=== PATIENT | male | born 1950 | race Two or more races ===

== ENCOUNTER 2017-07-10 11:20 | Inpatient (IN) | payer MEDICARE ==
[~2017-07-10] VITALS: Ht 177.8 cm; Wt 57.2 kg
--- NOTE | 2017-07-10 11:30 | NUR ---
BIB [facility] FOR NOT EATING X 3 DAYS. VSS. NAD NOTED. SEEN BY MD FOR EVAL. SAFETY AND COMFORT [id number] PROVIDED. WILL MONITOR.
--- NOTE | 2017-07-10 11:40 | NUR ---
IV ACCESS STARTED. BLOOD DRAWN FOR LABS. MEDICATED ORDERED.
--- NOTE | 2017-07-10 11:49 | NUR ---
PT TAKEN TO CT.
[2017-07-10 11:57] LABS: BASOPHILS % (AUTO) 0.1 % (0.0-2.0); EOSINOPHILS # (AUTO) 0.1 /CMM (0.0-0.7); EOSINOPHILS % (AUTO) 0.9 % (0.0-6.0); HEMATOCRIT 36 % (39-51); MEAN CORPUSCULAR HEMOGLOBIN 34 PG (26.0-33.0); MEAN CORPUSCULAR HGB CONC 33 g/dl (31.0-36.0); MEAN CORPUSCULAR VOLUME 104 fL (80-96); MONOCYTES # (AUTO) 0.3 /CMM (0.1-1.30); MONOCYTES % (AUTO) 5.6 % (2.0-12.0); NEUTROPHILS # (AUTO) 4.2 /CMM (1.8-8.9); NEUTROPHILS % (AUTO) 75.4 % (43.0-81.0); PLATELET COUNT (AUTO) 90 /CMM (150-450); RDW COEFFICIENT OF VARIATION 22.3 (11.5-15.0); WHITE BLOOD COUNT (AUTO) 5.6 K/uL (4.3-11.0)
[2017-07-10] MEDS ORDERED: IV NS 0.9% 1,000 ML BAG IV ONE (12:00)
[2017-07-10 12:03] LABS: CALCIUM, SERUM 8.1 mg/dL (8.5-10.1); CARBON DIOXIDE 26 mmol/L (21-32); CHLORIDE 112 mmol/L (98-107); CREATININE 0.7 mg/dL (0.6-1.3); GLUCOSE 319 mg/dL (74-106); POTASSIUM 3.2 mmol/L (3.5-5.1); SODIUM SERUM 144 mmol/L (136-145); UREA NITROGEN, BLOOD 14 mg/dL (7-18)
[2017-07-10 12:11] LABS: TROPONIN I < 0.017 ng/mL (0.00-0.056)
--- NOTE | 2017-07-10 12:11 | NUR ---
URINE SAMPLE OBTAINED, SENT.
[2017-07-10 12:13] LABS: INR 1.45 (0.87-1.13); PROTHROMBIN TIME 15.1 SECS (9.5-12.7)
[2017-07-10 12:16] LABS: BAND % (MANUAL) 4 % (0.0-5.0); EOSINOPHILS % (MANUAL) 1 % (0-4); LYMPHOCYTES % (MANUAL) 17 % (16-48); MONOCYTES % (MANUAL) 3 % (0-11.0); NEUTROPHILS % (MANUAL) 75 (42-76)
[2017-07-10 12:18] LABS: ALANINE AMINOTRANSFERASE 32 U/L (12-78); ALKALINE PHOSPHATASE 182 U/L (46-116); ASPARTATE AMINOTRANSFERASE 42 U/L (15-37); BILIRUBIN,DIRECT 0.3 mg/dL (0.0-0.2); BILIRUBIN,TOTAL 0.8 mg/dL (0.2-1.0); TOTAL PROTEIN, SERUM 6.8 g/dL (6.4-8.2)
[2017-07-10 12:36] LABS: APPEARANCE,URINE SL CLOUDY (CLEAR); BILIRUBIN,URINE NEGATIVE (NEGATIVE); BLOOD, URINE 2+ Ery/uL (NEGATIVE); COLOR,URINE YELLOW (YELLOW); KETONES,URINE NEGATIVE (NEGATIVE); LEUKOCYTE ESTERASE ,URINE TRACE (NEGATIVE); NITRITE, URINE POSITIVE (NEGATIVE); PROTEIN,URINE TRACE mg/dl (NEGATIVE); UGLUCOSE 3+ mg/dL (NEGATIVE)
--- NOTE | 2017-07-10 12:40 | NUR ---
CALLED DR MARY OFFICE WAS PAGED.
[2017-07-10 12:44] LABS: BACTERIA,URINE Moderate /HPF (None Seen); RBC,URINE 0-3 /HPF (0-2); SQUAMOUS EPITHELIAL CELL,UR Few /HPF (None Seen); WBC,URINE 21-50 /HPF (0-3)
[2017-07-10] MEDS ORDERED: IV NS 0.9% 500 ML BAG IV ONE (13:00)
[2017-07-10] MEDS ORDERED: CEFTRIAXONE 1GM BAG (ER ONLY) 1 GM/50 ML PIGGYBACK IV ONE (13:00)
[2017-07-10] MEDS ORDERED: CEFTRIAXONE 1GM BAG (ER ONLY) 50 ML IV ONE (13:05)
[2017-07-10] MEDS ORDERED: CAPE500T15 PO (13:10)
[2017-07-10] MEDS ORDERED: MIRT30TA7 PO (13:10)
[2017-07-10] MEDS ORDERED: PRAV20TA4 PO (13:10)
[2017-07-10] MEDS ORDERED: CHOL100062 PO (13:10)
[2017-07-10] MEDS ORDERED: ONDA8TAB6 PO (13:10)
[2017-07-10] MEDS ORDERED: INSU3INS6 SQ (13:10)
--- NOTE | 2017-07-10 13:10 | NUR ---
CALLED DR MARY OFFICE WAS REPAGED.
--- NOTE | 2017-07-10 14:23 | NUR ---
REPORT GIVEN TO RON SOLORZANO FOR MS [id number]
--- NOTE | 2017-07-10 14:30 | NUR ---
NS EMPLOYMENT PROGRAMS ANALYST NOTE PATIENT IS ALERT AND ORIENTED x2. PERIODS OF CONFUSION NOTED. ABLE TO COMMUNICATE NEEDS. CALL LIGHT WITHIN REACH. SAFETY MEASURES IMPLEMENTED. BLOOD SUGARS TO BE MONITORED. IV ON LEFT FOREARM 20 G INTACT AND PATENT NO REDNESS OR SWELLING NOTED. RECEIVED REPORT FROM VINNIE SOLORZANO. ADMITTED TO ER FROM [facility] DUE TO NOT EATING FOR THREE DAYS STRAIGHT. HISTORY OF COLON CA, CAD AND DM. INCONTINENT. PT EVALUATION FOR WEAKNESS. MRSA SWAB OBTAINED. MULTIPLE SKIN ISSUES NOTED AND DOCUMENTED. WILL CONTINUE TO MONITOR
[2017-07-10 16:00] VITALS: BP 148/70
[2017-07-10] MEDS ORDERED: ONDANSETRON 4 MG TAB.RAPDIS PO PRN (16:30)
[2017-07-10] MEDS ORDERED: DEXTROSE 50%-WATER 50 ML DISP.SYRIN IV PRN (16:30)
[2017-07-10] MEDS ORDERED: CAPECITABINE 500 MG TABLET PO SCH (17:00)
[2017-07-10] MEDS: BLOOD SUGAR DIAGNOSTIC 1 EACH STRIP IN SCH ×2 (17:17→22:20)
[2017-07-10] MEDS: CHOLECALCIFEROL 1,000 UNIT TABLET (VIT D3) PO SCH (17:17)
[2017-07-10] MEDS: IV NS 0.9% 1,000 ML IV PRN (17:29)
[2017-07-10] MEDS: INSULIN ASPART HUMALOG/NOVOLOG 100 UNIT/ML CARTRIDGE SQ PRN ×2 (18:23→22:31)
--- NOTE | 2017-07-10 18:37 | NUR ---
MS RN CLOSING NOTE PATIENT IS ALERT AND ORIENTED x2. NO PAIN AT THIS TIME. NO SOB OR DISTRESS NOTED. CALL LIGHT WITHIN REACH AT ALL TIMES. SAFETY MEASURES IMPLEMENTED. ABLE TO COMMUNICATE NEEDS. IV ON LEFT FOREARM INTACT AND PATENT NO REDNESS OR SWELLING NOTED. HAS IV FLUIDS ATR 75 ML/HR. MADE MD AWARE ABOUT POTASSIUM, NNO. BLOOD SUGAR 181-3 UNITS GIVEN. AWAITING PT EVAL. CALLED [facility] IN [place] FOR MEDICATION TO BE BROUGHT FOR PATIENT, NO RN AVAILABLE UNTIL THE MORNING. WILL ENDORSE TO MILLWRIGHT APPRENTICE NURSE TO CALL WHEN AVAILABLE. PATIENT MOVED FROM [id number] TO [id number].WILL ENDORSE TO MILLWRIGHT APPRENTICE NURSE FOR SYLVIE.
--- NOTE | 2017-07-10 19:20 | NUR ---
MS/RN OPENING NOTES PT RECEIVED RESTING COMFORTABLY IN BED. A/OX2, ON RA, BREATHING EVEN AND UNLABORED. NO S/S OF SOB, DENIES PAIN. IV TO LEFT FA PATENT AND INTACT RUNNING IVF ORDERED. BED IN LOW/LOCKED POSITION WITH CALL LIGHT IN REACH. SIDE RAILS UPX2 AND BED ALARM ON FOR SAFETY. WILL CONTINUE TO MONITOR
[2017-07-10 20:00] VITALS: BP 124/56
[2017-07-10] MEDS: INSULIN DETEMIR 100 UNIT/ML CARTRIDGE SQ SCH (21:13)
--- NOTE | 2017-07-10 21:24 | NUR ---
MS/RN NOTES BLOOD KFGDH=[id number], ADMINISTERED 5 UNITS OF LEVEMIR SCHEDULED. SNACK PROVIDED.
[2017-07-10] MEDS: PRAVASTATIN SODIUM 20 MG TABLET PO SCH (22:18)
[2017-07-10] MEDS: MIRTAZAPINE 15 MG TABLET PO SCH (22:18)
--- NOTE | 2017-07-11 06:30 | NUR ---
MS/RN NOTES PER APPAREL MANUFACTURE INSTRUCTOR, PT NOTED TO HAVE [place] COLORED STOOL WITH LITTLE BLOOD. PERSONALLY DID NOT SEE SAMPLE. DR. JAY'S OFFICE WAS PAGED TO NOTIFY HIM. AWAITING CALL BACK
[2017-07-11] MEDS: BLOOD SUGAR DIAGNOSTIC 1 EACH STRIP IN SCH ×4 (06:55→22:06)
[2017-07-11] MEDS: INSULIN ASPART HUMALOG/NOVOLOG 100 UNIT/ML CARTRIDGE SQ PRN ×2 (06:55→12:41)
--- NOTE | 2017-07-11 07:10 | NUR ---
MS/RN CLOSING NOTES PT ASLEEP, EASILY AROUSABLE TO NAME/TOUCH. A/OX2. ABLE TO VERBALIZE NEEDS. ON RA, BREATHING EVEN AND UNLABORED. DENIES PAIN AND SOB. IV TO LFA PATENT AND INTACT RUNNING IVF ORDERED. SNACKS PROVIDED. MADE PT COMFORTABLE DURING SHIFT. ALL NEEDS MET AND ATTENDED. TURNED/REPOSITIONED Q2H AND OFFLOADED HEELS. BED IN LOW/LOCKED POSITION, CALL LIGHT IN REACH, SIDE RAILS XUP3 AND BED ALARM ON FOR SAFETY. SANCHEZ COLORED STOOLS NOTED DURING SHIFT. WILL ENDORSE TO DAY SHIFT RN TO MONITOR AND FOLLOW UP WITH MD. MIRIAN MCINTOSH TO BE CONTACTED TO PROVIDE MEDICATION "XELODA". BLOOD SUGAR THIS AM=66, 2 BOXES OF OJ CONSUMED
--- NOTE | 2017-07-11 07:30 | NUR ---
RN NOTES RECEIVED PATIENT ASLEEP IN BED, AROUSES EASILY, ALERT AND ORIENTED X 2. NO ACUTE DISTRESS, NO SOB NOTED. DENIES PAIN AND DISCOMFORT AT THE MOMENT. IV SITE INTACT AND PATENT. SAFETY MEASURES INITIATED. BED IN LOCKED, LOW POSITION, SIDERAILS UP X2, CALL LIGHT IN REACH. WILL CONTINUE TO MONITOR ACCORDINGLY.
[2017-07-11 08:00] VITALS: BP 110/54
[2017-07-11] MEDS: INSULIN DETEMIR 100 UNIT/ML CARTRIDGE SQ SCH (10:28)
[2017-07-11] MEDS: CHOLECALCIFEROL 1,000 UNIT TABLET (VIT D3) PO SCH (10:34)
[2017-07-11] MEDS: ASPIRIN EC 81 MG TABLET.DR PO SCH (10:34)
[2017-07-11] MEDS: CEFTRIAXONE 1 G in IV D5W 50 ML IV SCH (12:45)
[2017-07-11] MEDS: IV NS 0.9% 1,000 ML IV PRN (12:49)
[2017-07-11 16:00] VITALS: BP 135/64
--- NOTE | 2017-07-11 19:15 | NUR ---
RN NOTES NO CHANGE OF PATIENT'S CONDITION. NO ACUTE DISTRESS, NO SOB. ALL NEEDS ATTENDED AND PROVIDED. KEPT PATIENT SAFE AND COMFORTABLE. BED IN LOCKED LOW POSITION, SIDERAILS UPX2, CALL LIGHT IN REACH. ENDORSED TO CONTENT ASSISTANT RN FOR SYLVIE.
--- NOTE | 2017-07-11 19:30 | NUR ---
MS RN NOTES RECEIVED ON BED A/O 1-2,EATING HIS DINNER FOOD,IVF NS AT 75ML/HR RATE IN PROGRESS VIA IV PUMP,SITE PATENT ON LFA.ABLE TO SIT AT BEDSIDE PER PT.FALL PRECAUTION OBSERVED.BED ON LOWEST POSITION AND LOCKED.BED ALARM TRIGGERED.CALL LIGHT IN REACH,NEEDS ANTICIPATED.
[2017-07-11 20:00] VITALS: BP 134/65
[2017-07-11 20:07] VITALS: BP 134/65
--- NOTE | 2017-07-11 22:00 | NUR ---
MS RN NOTES ACCU-CHECK BLOOD SUGAR CHECK 105,NO INSULIN COVERAGE
[2017-07-11] MEDS: MIRTAZAPINE 15 MG TABLET PO SCH (22:02)
[2017-07-11] MEDS: PRAVASTATIN SODIUM 20 MG TABLET PO SCH (22:04)
[2017-07-12] MEDS: IV NS 0.9% 1,000 ML IV PRN (02:54)
[2017-07-12] MEDS: BLOOD SUGAR DIAGNOSTIC 1 EACH STRIP IN SCH ×4 (05:37→21:54)
--- NOTE | 2017-07-12 06:29 | NUR ---
MS RN NOTES SLEPT WELL,A/O X1-2.IVF INFUSING,BLOOD SUGAR CHECK 87, NO INSULIN COVERAGE.IN NO ACUTE DISTRESS.WILL ENDORSE TO DAY NURSE FOR SYLVIE.
--- NOTE | 2017-07-12 06:49 | NUR ---
MS RN NOTES REFUSED MORNING LAB DRAW.
[2017-07-12 08:00] VITALS: BP 118/52
--- NOTE | 2017-07-12 08:19 | NUR ---
RN NOTES RECEIVED PT. PT IS STABLE AND SLEEPING IN BED. PER REPORT PT IS CONFUSED. ON RA, O2 SAT ABOVE 95%. NO S/S OF DISTRESS OR SOB AT THIS TIME. PT DOES NOT APPEAR TO BE IN PAIN. IV ACCESS LOCATED ON LEFT FA, 20G RUNNING NS AT 50 ML/HR. PT REFUSED BLOOD DRAW IN AM. SAFETY MEASURES IN PLACE, CALL LIGHT WITHIN REACH. WILL CONTINUE TO MONITOR.
[2017-07-12] MEDS: POTASSIUM CHLORIDE 20 MEQ TAB.PRT.SR PO SCH (08:42)
[2017-07-12] MEDS: CHOLECALCIFEROL 1,000 UNIT TABLET (VIT D3) PO SCH (08:42)
[2017-07-12] MEDS: ASPIRIN EC 81 MG TABLET.DR PO SCH (08:43)
[2017-07-12 09:37] LABS: BASOPHILS % (AUTO) 0.2 % (0.0-2.0); EOSINOPHILS # (AUTO) 0.1 /CMM (0.0-0.7); EOSINOPHILS % (AUTO) 1.3 % (0.0-6.0); HEMATOCRIT 36 % (39-51); HEMOGLOBIN 11.8 g/dL (13.5-17.5); LYMPHOCYTES # (AUTO) 0.8 /CMM (0.8-4.8); LYMPHOCYTES % (AUTO) 17.1 % (20.0-44.0); MEAN CORPUSCULAR HEMOGLOBIN 34 PG (26.0-33.0); MEAN CORPUSCULAR HGB CONC 33 g/dl (31.0-36.0); MEAN CORPUSCULAR VOLUME 103 fL (80-96); MONOCYTES # (AUTO) 0.2 /CMM (0.1-1.30); MONOCYTES % (AUTO) 4.8 % (2.0-12.0); NEUTROPHILS # (AUTO) 3.5 /CMM (1.8-8.9); NEUTROPHILS % (AUTO) 76.6 % (43.0-81.0); PLATELET COUNT (AUTO) 55 /CMM (150-450); RDW COEFFICIENT OF VARIATION 22.6 (11.5-15.0); RED BLOOD CELL COUNT(AUTO) 3.45 MIL/uL (4.5-6.0); WHITE BLOOD COUNT (AUTO) 4.6 K/uL (4.3-11.0)
[2017-07-12 09:44] LABS: CALCIUM, SERUM 7.4 mg/dL (8.5-10.1); CREATININE 0.4 mg/dL (0.6-1.3); POTASSIUM 3.2 mmol/L (3.5-5.1)
[2017-07-12 10:11] LABS: BAND % (MANUAL) 4 % (0.0-5.0); EOSINOPHILS % (MANUAL) 3 % (0-4); LYMPHOCYTES % (MANUAL) 21 % (16-48); MONOCYTES % (MANUAL) 5 % (0-11.0); NEUTROPHILS % (MANUAL) 67 (42-76)
[2017-07-12] MEDS: INSULIN ASPART HUMALOG/NOVOLOG 100 UNIT/ML CARTRIDGE SQ PRN (12:56)
[2017-07-12] MEDS: CEFTRIAXONE 1 G in IV D5W 50 ML IV SCH (13:00)
[2017-07-12 16:00] VITALS: BP 109/78
--- NOTE | 2017-07-12 19:25 | NUR ---
RN CLOSING NOTES PT IS IN BED RESTING. NO S/S OF DISTRESS OR SOB. NO C/O PAIN AT THIS TIME. NO NEW ORDERS OR PROCEDURES FOR TODAY. SAFETY MEASURES IN PLACE, CALL LIGHT WITHIN REACH. WILL ENDORSE TO CIRCULAR STUFFER FOR SYLVIE.
--- NOTE | 2017-07-12 19:30 | NUR ---
RN NOTES RECEIVED PATIENT IN BED AWAKE, AO X 1-2, ABLE TO MAKE NEEDS KNOWN. NO ACUTE DISTRESS NOTED. DENIES ANY PAIN AT THIS TIME. NOP SYMPTOMS OF HYPER/HYPOGLYCEMIA. IV SITE PATENT, INTACT; IVF INFUSING ORDERED. SAFETY REMINDERS GIVEN. ON LOW BED WITH BILATERAL UPPER SIDE RAILS UP. CALL LIGHT WITHIN EASY REACH. WILL CONTINUE TO MONITOR.
[2017-07-12 20:00] VITALS: BP 109/56
[2017-07-12] MEDS: PRAVASTATIN SODIUM 20 MG TABLET PO SCH (21:54)
[2017-07-12] MEDS: MIRTAZAPINE 15 MG TABLET PO SCH (21:54)
[2017-07-13] MEDS: IV NS 0.9% 1,000 ML IV PRN (05:22)
--- NOTE | 2017-07-13 06:48 | NUR ---
RN NOTES PATIENT ASLEEP, EASILY AROUSABLE. RESPIRATIONS EVEN. NO SIGNS OF PAIN NOTED. DUE MEDS GIVEN WITH NO ASE NOTED. NEEDS ATTENDED. NO SYMPTOMS OF HYPER/HYPOGLYCEMIA. SAFETY PRECAUTIONS AND COMFORT MEASURES IN PLACE. WILL GIVE REPORT TO DAY SHIFT FOR CONTINUITY OF CARE.
--- NOTE | 2017-07-13 07:17 | NUR ---
MS/RN NOTES RECEIVED PATIENT AWAKE IN BED IN NO ACUTE SIGNS OF DISTRESS. A/O X 1-2, SAME VERBALLY RESPONSIVE, NO C/O PAIN OR DISCOMFORTS AT THIS TIME. ON ROOM AIR, BREATHING WELL WITH NO SOB NOTED. IV SITE ON LFA PATENT AND INTACT WITH IVF OF NS @ 50ML/HR INFUSING ORDERED. BES LOW AND LOCKED WITH BILATERAL UPPER SIDE RAILS UP. CALL LIGHT WITHIN EASY REACH. WILL CONTINUE TO MONITOR [place] ACCORDINGLY.
[2017-07-13 08:00] VITALS: BP 100/53
[2017-07-13] MEDS: BLOOD SUGAR DIAGNOSTIC 1 EACH STRIP IN SCH ×4 (08:45→21:19)
[2017-07-13] MEDS: POTASSIUM CHLORIDE 20 MEQ TAB.PRT.SR PO SCH (08:48)
[2017-07-13] MEDS: ASPIRIN EC 81 MG TABLET.DR PO SCH (08:48)
[2017-07-13] MEDS: CHOLECALCIFEROL 1,000 UNIT TABLET (VIT D3) PO SCH (08:48)
[2017-07-13] MEDS: CEFTRIAXONE 1 G in IV D5W 50 ML IV SCH (12:40)
[2017-07-13 16:00] VITALS: BP 117/66
[2017-07-13] MEDS: Z GUARD REMEDY 2 OZ OINT TP PRN (17:19)
[2017-07-13] MEDS: INSULIN ASPART HUMALOG/NOVOLOG 100 UNIT/ML CARTRIDGE SQ PRN ×2 (17:19→21:22)
--- NOTE | 2017-07-13 18:33 | NUR ---
MS/RN CLOSING NOTES PATIENT AWAKE AND RESTING IN BED. A/O X 2 AND ABLE TO COMMUNICATE VERBALLY. NO SIGNIFICANT CHANGES NOTED THROUGHOUT THE DAY. PT IS COMPLIANT WITH CARE. ON ROOM AIR, BREATHING EVEN WITH NO SOB NOTED. IVF OF NS @ 50ML/HR INFUSING WELL TO LFA, NO SIGNS OF INFILTRATION NOTED. KEPT BED LOW AND LOCKED WITH SIDE RAILS UP X2. CALL LIGHT WITHIN EASY REACH. ALL NEEDS AND CARE ATTENDED WELL. WILL ENDORSED TO REGISTERED PHLEBOTOMIST PART TIME NURSE FOR SYLVIE.
--- NOTE | 2017-07-13 19:30 | NUR ---
RN NOTES RECEIVED PATIENT SITTING UP IN BED AWAKE, AO X 1-2, ABLE TO MAKE NEEDS KNOWN. NO ACUTE DISTRESS NOTED. DENIES ANY PAIN AT THIS TIME. NO SYMPTOMS OF HYPER/HYPOGLYCEMIA NOTED. IV SITE PATENT, INTACT; IVF INFUSING ORDERED. SAFETY REMINDERS GIVEN. ON LOW BED WITH BILATERAL UPPER SIDE RAILS UP. CALL LIGHT WITHIN EASY REACH. WILL CONTINUE TO MONITOR.
[2017-07-13 20:00] VITALS: BP 103/61
[2017-07-13] MEDS: PRAVASTATIN SODIUM 20 MG TABLET PO SCH (21:19)
[2017-07-13] MEDS: MIRTAZAPINE 15 MG TABLET PO SCH (21:19)
[2017-07-14] MEDS: IV NS 0.9% 1,000 ML IV PRN (05:24)
[2017-07-14] MEDS: BLOOD SUGAR DIAGNOSTIC 1 EACH STRIP IN SCH ×4 (06:32→21:05)
--- NOTE | 2017-07-14 07:19 | NUR ---
MS/RN OPENING NOTES PATIENT RECEIVED ASLEEP IN BED, EASILY AWAKENS. A/O X 2, SAME VERBALLY RESPONSIVE, DENIES PAIN OR DISCOMFORTS AT THIS TIME. ON ROOM AIR, BREATHING WELL WITH NO SOB NOTED. IV ACCESS ON LFA G# 20 PATENT AND INTACT WITH IVF OF NS @ 50ML/HR INFUSING ORDERED. BES LOW AND LOCKED WITH BILATERAL UPPER SIDE RAILS UP. CALL LIGHT WITHIN EASY REACH. WILL CONTINUE TO MONITOR [place] ACCORDINGLY.
[2017-07-14 08:00] VITALS: BP 104/52
[2017-07-14] MEDS: CHOLECALCIFEROL 1,000 UNIT TABLET (VIT D3) PO SCH (08:40)
[2017-07-14] MEDS: POTASSIUM CHLORIDE 20 MEQ TAB.PRT.SR PO SCH (08:40)
[2017-07-14] MEDS: ASPIRIN EC 81 MG TABLET.DR PO SCH (08:40)
[2017-07-14] MEDS: CEFTRIAXONE 1 G in IV D5W 50 ML IV SCH (12:20)
[2017-07-14] MEDS: INSULIN ASPART HUMALOG/NOVOLOG 100 UNIT/ML CARTRIDGE SQ PRN ×3 (12:21→21:06)
[2017-07-14 16:00] VITALS: BP 105/58
--- NOTE | 2017-07-14 18:56 | NUR ---
MS/RN CLOSING NOTES PATIENT AWAKE AND SITTING ON SIDE OF BED AT THIS TIME. A/O X 2 AND ABLE TO MAKE NEEDS KNOWN. NO SIGNIFICANT CHANGES NOTED THROUGHOUT THE DAY. ON ROOM AIR, BREATHING EVEN WITH NO SOB NOTED. IVF OF NS @ 50ML/HR INFUSING WELL TO LFA, NO SIGNS OF INFILTRATION NOTED. KEPT BED LOW AND LOCKED WITH SIDE RAILS UP X2. CALL LIGHT WITHIN EASY REACH. ALL NEEDS AND CARE ATTENDED WELL. WILL ENDORSED TO NURSING HOME MANAGER NURSE FOR SYLVIE.
--- NOTE | 2017-07-14 19:00 | NUR ---
MS RN OPENING NOTES PT SITTING IN BED, A/OX 1, NO S/S OF RESPIRATORY DISTRESS OR SOB. SAFETY MEASURES IN PLACE, ON LOW BED TO ENSURE SAFETY. CALL LIGHT WITHIN REACH. WILL CONTINUE TO MONITOR
[2017-07-14 20:00] VITALS: BP 109/64
[2017-07-14] MEDS: MIRTAZAPINE 15 MG TABLET PO SCH (21:04)
[2017-07-14] MEDS: PRAVASTATIN SODIUM 20 MG TABLET PO SCH (21:06)
[2017-07-15] MEDS: IV NS 0.9% 1,000 ML IV PRN ×2 (00:15→20:36)
[2017-07-15] MEDS: BLOOD SUGAR DIAGNOSTIC 1 EACH STRIP IN SCH ×4 (05:27→21:06)
[2017-07-15] MEDS: INSULIN ASPART HUMALOG/NOVOLOG 100 UNIT/ML CARTRIDGE SQ PRN ×3 (05:27→21:08)
--- NOTE | 2017-07-15 06:31 | NUR ---
MS RN CLOSING NOTES PT ASLEEP HOB ELEVATED AND EASILY AWAKEN, TOLERATING ROOM 100%. NO S/S OF HYPO/HYPERGLYCEMIA. NO S/S OF RESPIRATORY DISTRESS IN STABLE CONDITION, IV SITE NO S/S OF INFILTRATED PATENT AND FLUSHED, NO SOB, AFEBRILE, NEEDS ATTENDED AND ANTICIPATED. NURSING CARE RENDERED. KEPT CLEAN AND DRY AND COMFORTABLE, GOOD SKIN CARE PROVIDED. FREQUENT VISUAL CHECK DONE FOR SAFETY EVERY 2 HOURS, SAFE HAZARD FREE ENVIRONMENT PROVIDED. CALL LIGHT WITHIN EASY TO REACH, ON LOW BED AT ALL TIMES TO ENSURE SAFETY, WILL ENDORSE TO THE NEXT SHIFT CONTINUE PLAN OF CARE.
--- NOTE | 2017-07-15 07:21 | NUR ---
MS/RN OPENING NOTES RECEIVED PT COMFORTABLY ASLEEP IN BED, AROUSES EASILY. HOB ELEVATED. ON ROOM AIR, BREATHING EVEN AND UNLABORED. IV ACCESS ON LFA G# 20 PATENT AND INTACT WITH IVF OF NS @ 50ML/HR INFUSING, NO SIGNS OF INFILTRATION OR REDNESS TO IV SITE NOTED. BED LOW AND LOCKED POSITION WITH BILATERAL UPPER SIDE RAILS UP. CALL LIGHT WITHIN EASY REACH. WILL CONTINUE TO MONITOR [place] ACCORDINGLY.
[2017-07-15 08:00] VITALS: BP 130/72
[2017-07-15] MEDS: CHOLECALCIFEROL 1,000 UNIT TABLET (VIT D3) PO SCH (08:47)
[2017-07-15] MEDS: POTASSIUM CHLORIDE 20 MEQ TAB.PRT.SR PO SCH (08:47)
[2017-07-15] MEDS: ASPIRIN EC 81 MG TABLET.DR PO SCH (08:47)
[2017-07-15] MEDS: CEFTRIAXONE 1 G in IV D5W 50 ML IV SCH (12:08)
[2017-07-15 16:00] VITALS: BP 125/62
[2017-07-15] MEDS: Z GUARD REMEDY 2 OZ OINT TP PRN (17:32)
--- NOTE | 2017-07-15 18:52 | NUR ---
MS/RN CLOSING NOTES PATIENT SITTING ON SIDE OF BED AT THIS TIME. A/O X 2 AND ABLE TO MAKE NEEDS KNOWN. VERY COMPLIANT WITH CARE. NO SIGNIFICANT CHANGES NOTED THROUGHOUT THE DAY. B/S MONITORING CONTINUES , NO S/S OF HYPO/HYPERGLYCEMIA NOTED. ON ROOM AIR, BREATHING EVEN AND UNLABORED. IVF OF NS @ 50ML/HR INFUSING WELL TO LFA, NO SIGNS OF INFILTRATION NOTED. KEPT BED LOW AND LOCKED WITH SIDE RAILS UP X2. CALL LIGHT WITHIN EASY REACH. ALL NEEDS AND CARE ATTENDED WELL. WILL ENDORSED TO GASTROENTEROLOGY NURSE PRACTITIONER NURSE FOR SYLVIE.
--- NOTE | 2017-07-15 19:00 | NUR ---
MS RN OPENING NOTES PT SITTING IN BED, A/OX 1, EATING, NO S/S OF RESPIRATORY DISTRESS OR SOB. SAFETY MEASURES IN PLACE, ON LOW BED TO ENSURE SAFETY. CALL LIGHT WITHIN REACH. WILL CONTINUE TO MONITOR
[2017-07-15 20:00] VITALS: BP 115/65
[2017-07-15] MEDS: MIRTAZAPINE 15 MG TABLET PO SCH (21:07)
[2017-07-15] MEDS: PRAVASTATIN SODIUM 20 MG TABLET PO SCH (21:09)
[2017-07-16] MEDS: INSULIN ASPART HUMALOG/NOVOLOG 100 UNIT/ML CARTRIDGE SQ PRN ×3 (05:30→22:56)
[2017-07-16] MEDS: BLOOD SUGAR DIAGNOSTIC 1 EACH STRIP IN SCH ×4 (05:30→22:54)
--- NOTE | 2017-07-16 06:29 | NUR ---
MS RN CLOSING NOTES PATIENT COMFORTABLY ASLEEP AND EASILY AWAKEN, HEAD OF BED ELEVATED FOR BETTER LUNG EXPANSION TOLERATING ROOM AIR 02 SAT AT 98%. RESPIRATIONS EVEN AND UNLABORED. NO S/S OF ACUTE DISTRESS, NO SOB, AFEBRILE, ALL NURSING CARE RENDERED, NEEDS ATTENDED AND ANTICIPATED, KEPT CLEAN AND DRY AND COMFORTABLE, GOOD SKIN ARE PROVIDED. FREQUENT VISUAL CHECK DONE FOR SAFETY EVERY 2 HOURS. SAFE HAZARD FREE ENVIRONMENT PROVIDED. CALL LIGHT WITHIN EASY TO REACH, ON LOW BED AT ALL TIMES TO ENSURE SAFETY, WILL ENDORSE TO THE NEXT SHIFT CONTINUE PLAN OF CARE
--- NOTE | 2017-07-16 07:30 | NUR ---
RN OPENING NOTES RECEIVED PT. IN BED A&OX1-2. BREATHING UNLABORED AND EVENLY ON ROOM AIR. IV FLUIDS RUNNING AT 50 ML/HR. BED IS IN LOW, LOCKED POSITION, 2 SIDE RAILS UP, AND CALL LIGHT WITHIN REACH. WILL CONTINUE TO ASSESS AND MONITOR.
[2017-07-16 08:00] VITALS: BP 124/79
[2017-07-16] MEDS: ASPIRIN EC 81 MG TABLET.DR PO SCH (08:42)
[2017-07-16] MEDS: CHOLECALCIFEROL 1,000 UNIT TABLET (VIT D3) PO SCH (08:43)
--- NOTE | 2017-07-16 10:08 | NUR ---
RN NOTES PT. REFUSED BLOOD DRAW TWICE DUE TO PAIN. WILL INFORM MD.
[2017-07-16] MEDS: POTASSIUM CHLORIDE 20 MEQ TAB.PRT.SR PO SCH (10:33)
--- NOTE | 2017-07-16 10:40 | NUR ---
RN NOTES PER MD OKAY TO GIVE 40 MEQ OF POTASSIUM PO.
[2017-07-16] MEDS ORDERED: CEFTRIAXONE 1 G in IV D5W 50 ML IV SCH (13:30)
[2017-07-16] MEDS ORDERED: CEFTRIAXONE 1 G in IV D5W 50 ML IM SCH (14:00)
[2017-07-16] MEDS ORDERED: LIDOCAINE HCL/PF 1 % 2ML HHN ONE (14:50)
--- NOTE | 2017-07-16 15:45 | NUR ---
RN NOTES PT. WAS SEEN AND EXAMINED BY DR. JAY.
[2017-07-16 16:00] VITALS: BP 118/43
[2017-07-16] MEDS: CEFTRIAXONE 1 G VIAL IM SCH (16:50)
--- NOTE | 2017-07-16 19:30 | NUR ---
RN CLOSING NOTES PT. IN BED A&OX1-2 WATCHING TV. BREATHING UNLABORED AND EVENLY ON ROOM AIR. NO IV ACCESS. PT. RECEIVED ROCEPHIN ANTIBIOTIC IM TODAY. NO S/S OF ACUTE DISTRESS. BED IS IN LOW, LOCKED POSITION, 2 SIDE RAILS UP, AND CALL LIGHT WITHIN REACH. WILL ENDORSE REPORT TO NURSE.
--- NOTE | 2017-07-16 19:40 | NUR ---
MS/RN NOTES RECEIVED PT. SITTING UP IN BED. PT. IS AWAKE, ALERT AND ORIENTED X 1-2. BREATHING EVEN AND UNLABORED ON ROOM AIR. NO SOB, RESPIRATORY DISTRESS OR COMPLAINTS OF PAIN NOTED AT THIS TIME. PT. HAS NO IV ACCESS MD AWARE. PER DAYSHIFT NURSE MD PLACED DISCHARGE ORDER BUT PT. IS PENDING PLACEMENT AT THIS TIME. BED LOCKED AND IN LOWEST POSITION, SIDE RAILS UP X3, BED ALARM ON, CALL LIGHT WITHIN REACH, WILL CONTINUE TO MONITOR.
[2017-07-16 20:00] VITALS: BP 100/52
[2017-07-16] MEDS: PRAVASTATIN SODIUM 20 MG TABLET PO SCH (22:00)
[2017-07-16] MEDS: MIRTAZAPINE 15 MG TABLET PO SCH (22:55)
--- NOTE | 2017-07-17 06:23 | NUR ---
MS/RN NOTES PT. IS LYING IN BED RESTING. BREATHING EVEN AND UNLABORED ON ROOM AIR. NO SOB, RESPIRATORY DISTRESS OR COMPLAINTS OF PAIN NOTED AT THIS TIME. PT. REMAINS WITH NO IV ACCESS MD AWARE. ALL PT. NEEDS MET. BED LOCKED AND IN LOWEST POSITION, SIDE RAILS UP X3, BED ALARM ON, CALL LIGHT WITHIN REACH, WILL ENDORSE TO DAYSHIFT NURSE FOR CONTINUITY OF CARE.
[2017-07-17] MEDS: BLOOD SUGAR DIAGNOSTIC 1 EACH STRIP IN SCH ×2 (07:03→11:40)
[2017-07-17 08:00] VITALS: BP 118/53
--- NOTE | 2017-07-17 08:00 | NUR ---
m/s credit review manager: initial assessment received pt in bed awake, a/ox1-2 with confusion and disorientation to time, place, and situation. easily agitated when conversed. reality orientation provided prn. no c/o pain or any discomfort. instructed to call for assistance. will continue to monitor. for d'c planning to snf. awaiting placement. pt aware.
[2017-07-17] MEDS: ASPIRIN EC 81 MG TABLET.DR PO SCH (08:23)
[2017-07-17] MEDS: POTASSIUM CHLORIDE 20 MEQ TAB.PRT.SR PO SCH (08:23)
[2017-07-17] MEDS: CHOLECALCIFEROL 1,000 UNIT TABLET (VIT D3) PO SCH (08:23)
--- NOTE | 2017-07-17 10:00 | NUR ---
m/s magazine supervisor: notes resting quietly in bed with no distress noted. pt for d'c planning to snf today. awaiting for dr. mena. will continue to monitor.
[2017-07-17] MEDS: INSULIN ASPART HUMALOG/NOVOLOG 100 UNIT/ML CARTRIDGE SQ PRN (11:43)
--- NOTE | 2017-07-17 13:44 | NUR ---
m/s scuba diving teacher: md visit dr. mena here and informed md that pt got accepted at [facility] per case management with verbal order okay to discharge to snf and continue home medications except for rocephin im, and pt does not need any antibiotic when discharge, pt has enough as stated. shy (case management) will f/u at snf and will let me know as stated. pt made aware. will continue to monitor.
--- NOTE | 2017-07-17 14:25 | NUR ---
m/s racking technician: notes report given to mellissa (nurse) for continuity of care. eta @1600 per case management. pt made aware, but unable to sign discharge instructions due to cognitive impairment. 2 licensed staff signed all d'c papers. pt made aware of mixing picker tender time.
[2017-07-17] MEDS: CEFTRIAXONE 1 G VIAL IM SCH (15:18)
--- NOTE | 2017-07-17 15:18 | NUR ---
m/s infrastructure technician: notes rocephin 1gm im given to left deltoid. no redness/swelling noted at the injection site. will continue to monitor.
[2017-07-17 16:00] VITALS: BP 133/64
--- NOTE | 2017-07-17 16:30 | NUR ---
m/s mine laborer: notes still awaiting for ambulance fruit picker machine operator, f/u made to silvano (case management) and will f/u as stated. pt made aware.
--- NOTE | 2017-07-17 17:10 | NUR ---
m/s remote coders: notes [facility] here and report given to one of the crew.
--- NOTE | 2017-07-17 17:30 | NUR ---
m/s plate gauger: discharged pt ate dinner prior to discharge. discharged to snf via ambulance in stable condition with all belongings/valuables.
== END 2017-07-17 17:31 | DRG 872 ==
LOC: ER 11:22 → MED 14:21
PROVIDERS: ADMIT Internal Medicine; ATTEND Internal Medicine
DX: A41.9 Sepsis, unspecified organism (principal); I42.8 Other cardiomyopathies; D69.6 Thrombocytopenia, unspecified; C78.7 Secondary malignant neoplasm of liver and intrahepatic bile duct; R64 Cachexia; E44.0 Moderate protein-calorie malnutrition; C18.9 Malignant neoplasm of colon, unspecified; K86.1 Other chronic pancreatitis; N39.0 Urinary tract infection, site not specified; Z68.1 Body mass index [BMI] 19.9 or less, adult; J44.9 Chronic obstructive pulmonary disease, unspecified; E11.9 Type 2 diabetes mellitus without complications; R62.7 Adult failure to thrive; D63.8 Anemia in other chronic diseases classified elsewhere; I25.10 Atherosclerotic heart disease of native coronary artery without angina pectoris; B96.1 Klebsiella pneumoniae [K. pneumoniae] as the cause of diseases classified elsewhere; F17.210 Nicotine dependence, cigarettes, uncomplicated; F31.9 Bipolar disorder, unspecified; Z86.19 Personal history of other infectious and parasitic diseases; F10.20 Alcohol dependence, uncomplicated; K70.30 Alcoholic cirrhosis of liver without ascites; E87.6 Hypokalemia; R53.1 Weakness
CPT/HCPCS: 36415; 70450-TC; 71010-TC; 80048-TC; 80076-TC; 81000-TC; 82962-TC; 83605-TC; 84484-TC; 85025-TC; 85730-TC; 87040-TC; 87081-TC; 87086-TC; 87186-TC; J0696; J1815; J3490; J7030; J7040; J7060; Z7610